=== PATIENT | female | born 1990 | race Caucasian/White ===

== ENCOUNTER 2016-11-28 21:41 | Emergency (ER) | payer OTHER, BC ==
[~2016-11-28 21:41] MED LIST: DAYSEE1 TAB PO; DEXILANT60 M1 PO; EC NAPROSYN500 MG PO; MULTAQ400 MG PO; NASONEX0.05 MG/Ac NS; PROA; TES100 PO; WEL100 PO
[2016-11-28 23:45] LABS: UA SPECIFIC GRAVITY 1.025 (1.005-1.035); microscopic required? YES; urine erythrocyte 2+ (NEGATIVE)
[2016-11-28 23:46] LABS: BASOPHIL % 0.5 % (0-2); PLATELET COUNT 338 x10^3mcL (130-400); RED CELL DISTRIBUTION WIDTH 13.6 % (11.5-14.5)
[2016-11-28 23:58] LABS: CALCIUM 9.2 mg/dL (8.5-10.1); CARBON DIOXIDE 24.5 mmol/L (21-32); CHLORIDE SERUM 102 mmol/L (98-107); GFR1 > 60 mL/min; GLUCOSE SERUM 104 mg/dL (74-106); POTASSIUM SERUM 4.1 mmol/L (3.5-5.1); SODIUM SERUM 139 mmol/L (136-145)
[2016-11-29 00:02] LABS: ALBUMIN 3.9 g/dL (3.4-5.0); ALKALINE PHOSPHATASE 101 U/L (46-116); ALT/SGPT 35 U/L (14-59); AMYLASE 58 U/L (25-115); AST/SGOT 14 U/L (15-37); BILIRUBIN TOTAL 0.3 mg/dL (0.20-1.00); LIPASE 96 IU/L (73-393)
[2016-11-29 04:30] VITALS: BP 113/68
== END 2016-11-29 04:30 | disposition home or self-care (01) ==
LOC: ED 21:41
PROVIDERS: Emergency Medicine
DX: R10.9 Unspecified abdominal pain (principal); P07.30 Preterm newborn, unspecified weeks of gestation; J45.909 Unspecified asthma, uncomplicated; R11.10 Vomiting, unspecified; H54.41 Blindness, right eye, normal vision left eye; F99 Mental disorder, not otherwise specified; Z88.5 Allergy status to narcotic agent
CPT/HCPCS: J1170; J3010; Q0162

== ENCOUNTER 2017-05-17 21:43 | Inpatient (IN) | payer OTHER, BC ==
[~2017-05-17] VITALS: Ht 157.5 cm; Wt 98.0 kg
[~2017-05-17 21:43] MED LIST changes: -NASONEX0.05 MG/Ac NS
--- NOTE | 2017-05-17 22:01 | NUR ---
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 PER MOTHER, PT WAS CONFUSED ASKING "WHAT ARE THESE? WHAT DO YOU DO WITH THEM?", REFERRING TO HER SOCKS. PT IS UNABLE TO ANSWER ANY QUESTIONS. WHEN ASKED HER NAME OR WHERE SHE IS PT STATES, "I DON'T KNOW". PT IS ABLE TO FOLLOW BASIC COMMANDS. NO FACIAL DROOP IS NOTED, SPEACH IS CLEAR. PER MOTHER, PT HAD SIMILAR INCIDENT X1 YEAR AGO AND SINCE THEN HAS SOME LEFT SIDED WEAKNESS, MEMORY LOSS AND DIFFICULTY CONCENTRATING. THIS HAS SINCE CAUSED HER TO DROP OUT OF SCHOOL. PER MOTHER, PT HAS SINCE THEN BEEN DIAGNOSED WITH A SZ DISORDER AND RECENTLY PICKED UP NEW MEDICATIONS THIS THURSDAY, WHICH MOTHER STATES SHE IS NOT SURE WHETHER PT HAS STARTED THE MEDICATION OR NOT. RESP E/U. PLACED ON FULL CM. NO ACUTE DISTRESS NOTED. MOTHER AT BEDSIDE. CALL LIGHT WITHIN REACH.
--- NOTE | 2017-05-17 22:30 | NUR ---
PORTABLE XRAY AT BEDSIDE.
[2017-05-17 22:44] LABS: BASOPHIL % 1.1 % (0-2); PLATELET COUNT 266 x10^3mcL (130-400); RED CELL DISTRIBUTION WIDTH 13.8 % (11.5-14.5)
[2017-05-17 23:05] LABS: CALCIUM 8.9 mg/dL (8.5-10.1); CHLORIDE SERUM 103 mmol/L (98-107); CREATININE SERUM 0.9 mg/dL (0.6-1.0); GFR1 > 60 mL/min; GLUCOSE SERUM 102 mg/dL (74-106); POTASSIUM SERUM 4.5 mmol/L (3.5-5.1); SODIUM SERUM 139 mmol/L (136-145)
[2017-05-17 23:10] LABS: ALBUMIN 3.5 g/dL (3.4-5.0); ALKALINE PHOSPHATASE 119 U/L (46-116); ALT/SGPT 39 U/L (14-59); AST/SGOT 23 U/L (15-37); BILIRUBIN TOTAL 0.1 mg/dL (0.20-1.00); CHOLESTEROL 188 mg/dL (<200); TOTAL PROTEIN, SERUM 7.4 g/dL (6.4-8.2)
[2017-05-18] MEDS ORDERED: FLOVENT DI100 MCG/A1 (00:30)
[2017-05-18] MEDS ORDERED: XOPENEX HF0.045 MG/1 (00:30)
[2017-05-18] MEDS ORDERED: [UNRECOGNIZED DRUG - OTHER] (00:30)
[2017-05-18] MEDS ORDERED: FLOVENT HF0.044 MG/1 (00:31)
[2017-05-18] MEDS ORDERED: CLARITIN10 MG (00:32)
[2017-05-18] MEDS ORDERED: VITAMIN-D1000 IU (00:32)
[2017-05-18] MEDS ORDERED: BACLOFEN20 MG PO (00:33)
[2017-05-18] MEDS ORDERED: DEXILANT60 M1 PO (00:33)
[2017-05-18] MEDS ORDERED: CYMBALTA60 M1 PO (00:33)
[2017-05-18] MEDS ORDERED: INDOMETHACIN25 MG PO (00:34)
[2017-05-18] MEDS ORDERED: NORCO1 TA2 PO (00:34)
[2017-05-18] MEDS ORDERED: NADOLOL20 MG PO (00:35)
[2017-05-18] MEDS ORDERED: CLONAZEPAM0.5 MG PO (00:36)
[2017-05-18] MEDS ORDERED: FLECAINIDE ACE100 MG PO (00:37)
[2017-05-18] MEDS ORDERED: LACOO OU (00:37)
[2017-05-18] MEDS ORDERED: DAYSEE1 TAB PO (00:38)
[2017-05-18] MEDS ORDERED: LYRICA150 M1 PO (00:38)
--- NOTE | 2017-05-18 02:10 | NUR ---
PT LAYING IN BED, IN POSITION OF COMFORT. RESP E/U. NO ACUTE DISTRESS NOTED. PT DENIES ANY PAIN OR DISCOMFORT. FATHER AT BEDSIDE. CALL LIGHT WITHIN REACH.
--- NOTE | 2017-05-18 03:02 | NUR ---
REPORT GIVEN TO BRANDEN ALDANA.
--- NOTE | 2017-05-18 03:30 | NUR ---
REC'D PT FROM ED VIA [facility]V ACCOMPANIED BY NURSE AND PARENTS. SZ PREC IN PLACE. PT AAOX1. ORIENTED TO SELF ONLY. REORIENTED TO AGE, , PLACE, TIME, AND SITUATION. PT UNABLE TO RECOGNIZE PARENTS. PROSTHESIS TO R EYE. L EYE PERRLA. FOLLOWS COMMANDS, SPEECH CLEAR, SLOW TO RESPOND. ON TELE 39, SR. DENIES CP, DIZZINESS, OR PALPITATIONS. NO SIGNS OF DISTRESS NOTED. BREATHING EVEN/UNLABORED ON RA. NO EDEMA NOTED. DENIES NUMBING OR TINGLING. DENIES ABD PAIN, TENDERNESS, OR N/V. BOWEL SOUNDS ACTIVE. HEALED SCAR ACROSS UPPER MARLEY QUADRANTS. LAST BM 05/17, "NORMAL." VOIDING FREELY WITHOUT DYSURIA. AMBULATORY. SKIN INTACT. DENIES PAIN OR DISCOMFORT AT THIS TIME. IV TO RAC. ORIENTED TO DEVICES AND SURROUNDINGS. CALL LIGHT WITHIN REACH, BED AT LOWEST POSITION. WILL CONTINUE TO MONITOR.
--- NOTE | 2017-05-18 03:50 | NUR ---
PT MOVED TO 228B
[2017-05-18 04:01] VITALS: BP 122/56
[2017-05-18 04:11] LABS: CHOLESTEROL/HDL RATIO 4.4; MAGNESIUM 2.2 mg/dL (1.8-2.4); PHOSPHOROUS 3.7 mg/dL (2.5-4.9)
[2017-05-18 04:29] VITALS: BP 122/56
[2017-05-18 04:32] LABS: microscopic required? YES; urine erythrocyte 2+ (NEGATIVE)
[2017-05-18 04:39] LABS: AMPHETAMINE QUAL UR NONE DETECTED (NEG <=1000)
[2017-05-18 04:45] LABS: T3 TOTAL 1.06 ng/mL
[2017-05-18 05:05] LABS: FREE T4 0.85 ng/dL (0.76-1.46); FREE THYROXINE INDEX 2.5 ug/dL (1.4-4.5); T4(THYROXINE) 8.2 ug/dL (4.7-13.3)
--- NOTE | 2017-05-18 05:40 | NUR ---
PT RESTING IN BED WITH EYES CLOSED. NO SIGNS OF DISTRESS NOTED. BREATHING EVEN/UNLABORED ON RA. REORIENTED PT TO SELF, TIME, AND PLACE. DID NOT GIVE FLU VACCINE THIS MORNING; UNABLE TO SCAN MED. CALL LIGHT WITHIN REACH, BED AT LOWEST POSITION. WILL ENDORSE TO DAY NURSE.
--- NOTE | 2017-05-18 06:53 | NUR ---
ABLE TO SCAN FLU VACCINE. GIVEN PER ORDER.
--- NOTE | 2017-05-18 08:11 | NUR ---
ALERT AND ORIENTED TO PERSON, PLACE, BIRTHDATE AND PRESIDENT, BUT VERY DELAYED RESPONSES. UNABLE TO SAY WHAT SHE WOULD FIND IN A LIBRARY. NO SOB NOTED, ROOM AIR. REPORTS BM LAST NIGHT, REFUSED COLACE. TOOK AM MEDS WITHOUT DIFFICULTY. ASSISTED WITH BREAKFAST SET UP. SEIZURE PRECAUTIONS IN PLACE. TELE 39. IVF NS @ 100 TO RAC WNL. CALL LIGHT WITHIN REACH.
--- NOTE | 2017-05-18 09:40 | NUR ---
ATE BREAKFAST WELL, 100%. NO DISTRESS NOTED. FATHER BEDSIDE.
--- NOTE | 2017-05-18 10:31 | NUR ---
DR BENTLEY IN TO SEE PATIENT AND FATHER. ASSESSED MEMORY.
[2017-05-18 11:03] VITALS: BP 134/85
--- NOTE | 2017-05-18 11:48 | NUR ---
DAD ASKING FOR HOME MEDICATIONS. PATIENT REPORTS DIARRHEA AND REQUESTING IMODIUM.
--- NOTE | 2017-05-18 11:57 | NUR ---
REPAGED DR RICK.
--- NOTE | 2017-05-18 11:57 | NUR ---
SPOKE WITH DR RICK AND MADE HER AWARE PATIENT REQUESTING IMODIUM.
--- NOTE | 2017-05-18 13:27 | NUR ---
REPORTS 5 EPISODES OF DIARRHEA. MEDICATED WITH IMODIUM.
--- NOTE | 2017-05-18 14:14 | NUR ---
REQUESTING HEART MEDICATIONS. FEELS LIKE HR IS ELEVATED. ST 106 ON TELE MONITOR. PAGED DR RICK.
--- NOTE | 2017-05-18 14:15 | NUR ---
SPOKE WITH DR RICK AND MADE AWARE HR AND PATIENT REQUESTING MEDICATION.
--- NOTE | 2017-05-18 14:44 | NUR ---
WITNESSED SIGNATURE ON CONSENT FOR RELEASE OF MEDICAL RECORDS FROM [facility] (NOT [facility] ORDERED).
[2017-05-18 15:14] VITALS: BP 132/73
--- NOTE | 2017-05-18 15:20 | NUR ---
WITNESSED SIGNATURE ON CONSENT FOR MEDICAL RECORDS AT [facility]
--- NOTE | 2017-05-18 16:11 | NUR ---
DR OBRIEN IN TO SEE PATIENT.
--- NOTE | 2017-05-18 16:55 | NUR ---
DR OBRIEN TALKING WITH PARENTS.
--- NOTE | 2017-05-18 17:05 | NUR ---
REPORTS NO DIARRHEA SINCE IMODIUM GIVEN. FREQUENTLY GOING TO BATHROOM, STEADY ON FEET.
[2017-05-18 17:41] VITALS: BP 147/90
--- NOTE | 2017-05-18 18:52 | NUR ---
MEDICATED WITH TYLENOL FOR HEADACHE.
--- NOTE | 2017-05-18 19:53 | NUR ---
PT SEEN, RESTING IN BED, ALERT AND ORIENTED X 2, SLOW TO ANSWER QUESTIONS, SZ PRECAUTION IN PLACE, DENIES HEADACHE OR DIZZINESS, RT EYE BLIND, BREATHING EVEN AND UNLABORED, NO SOB, LUNG SOUNDS CLEAR, ON ROOM AIR WITH NO RESP DISTRESS NOTED, ON TELE#39 NSR, DENIES CHEST PAIN, IVF INFUSING WELL, PULSES PALPABLE, NO EDEMA NOTED, AMBULATORY WITH STEADY GAIT, ABD ROUND WITH ACTIVE BS, NO BM AT THIS TIME, DENIES ABD PAIN, VOIDING FREELY, FAMILY AT BEDSIDE, NO DISTRESS NOTED, WILL KEEP TO MONITOR.
[2017-05-18 21:05] VITALS: BP 136/78
--- NOTE | 2017-05-19 02:27 | NUR ---
ROUNDS MADE, PT ASLEEP BUT EASILY AROUSABLE, DENIES ANY PAIN OR DISCOMFORT, SZ PRECAUTION IN PLACE, NO DISTRESS NOTED, WILL KEEP TO MONITOR.
--- NOTE | 2017-05-19 05:26 | NUR ---
PT ASLEEP BUT EASILY AROUSABLE, SLEPT ON AND OFF WHOLE NIGHT, IVF INFUSING WELL, GAVE ONE TIME NORCO FOR PAIN WITH GOOD RELIEF, SZ PRECAUTION IN PLACE, CONDITION NO CHANGE, NO DISTRESS NOTED, WILL KEEP TO MONITOR.
[2017-05-19 05:33] VITALS: BP 112/71
[2017-05-19 07:26] LABS: BASOPHIL % 0.2 % (0-2); PLATELET COUNT 237 x10^3mcL (130-400); RED CELL DISTRIBUTION WIDTH 14.1 % (11.5-14.5)
[2017-05-19 07:44] LABS: CALCIUM 8.5 mg/dL (8.5-10.1); CARBON DIOXIDE 26.7 mmol/L (21-32); CHLORIDE SERUM 105 mmol/L (98-107); CREATININE SERUM 0.9 mg/dL (0.6-1.0); GFR1 > 60 mL/min; GLUCOSE SERUM 108 mg/dL (74-106); MAGNESIUM 1.9 mg/dL (1.8-2.4); PHOSPHOROUS 3.9 mg/dL (2.5-4.9); POTASSIUM SERUM 3.9 mmol/L (3.5-5.1); SODIUM SERUM 140 mmol/L (136-145)
--- NOTE | 2017-05-19 07:45 | NUR ---
PATIENT IS RESTING IN BED. PATIENT IS CALM AND COOPERATIVE WITH CARE, ABLE TO FOLLOW COMMANDS AND ANSWER QUESTIONS. PATIENT ORIENTED TO NAME, , KNEW SHE WAS IN A HOSPITAL BUT NOT SURE OF NAME OF HOSPITAL AND KNEW WHY SHE WAS IN THE HOSPITAL. PATIENTS RIGHT EYE IS NON RESPONSIVE, PATIENT IS TELE #9, NSR. PULSES ARE PRESENT, NO EDEMA NOTED. LUNG SOUNDS ARE CLEAR. PATIENT STATES BM 05/18/17. BOWEL SOUNDS ARE PRESENT AND ACTIVE. PATIENT DENIES PAIN AT THIS TIME. SKIN IS CDI. PATIENT HAS IV TO RAC NS INFUSING AT 100 ML/HR, SITE IS CDI. CALL LIGHT IS WITHIN REACH, SIDE RAILS ARE UP AND BED IS LOCKED.
--- NOTE | 2017-05-19 07:59 | NUR ---
SITTING BEDSIDE EATING BREAKFAST. PROVIDED SUPPLIES FOR WASH UP.
--- NOTE | 2017-05-19 09:30 | NUR ---
DR BENTLEY IN TO SEE PATIENT AND FATHER. PLAN FOR DC HOME TODAY. PATIENT UP IN CHAIR, NO DISTRESS NOTED.
[2017-05-19 10:04] VITALS: BP 112/71
[2017-05-19] MEDS ORDERED: LIPI10 PO (10:29)
--- NOTE | 2017-05-19 12:38 | NUR ---
UP IN CHAIR FOR LUNCH.
[2017-05-19] MEDS ORDERED: NASONEX0.05 MG/Ac NS (14:26)
--- NOTE | 2017-05-19 14:58 | NUR ---
PATIENT GIVEN DISCHARGE INSTRUCTIONS WITH FAMILY. DISCHARGE ORDERS, MEDICATIONS, APPOINTMENTS, AND EDUCATION WAS REVIEWED. PATIENT, MOTHER AND FATHER ALL VERBALIZED UNDERSTANDING OF INSTRUCTIONS. PATIENT IN NO APPARENT DISTRESS, CHEST RISE EQUAL AND UNLABORED. IV DISCONTINUED, CATHETER INTACT, SITE ABSENT OF REDNESS, SWELLING AND DRAINAGE, COVERED WITH GAUZE AND TAPE. PATIENTS TELE REMOVED.
--- NOTE | 2017-05-19 15:15 | NUR ---
OFF FLOOR VIA WHEELCHAIR WITH RN AND FAMILY. ALL BELONGINGS WITH FAMILY.
== END 2017-05-19 15:18 | disposition home or self-care (01) | DRG 74 ==
LOC: ED 21:43 → DU 05-18 02:28
PROVIDERS: Emergency Medicine Emergency Medical Services; ADMIT Family Medicine Sports Medicine
DX: G90.9 Disorder of the autonomic nervous system, unspecified (principal); E44.1 Mild protein-calorie malnutrition; D68.69 Other thrombophilia; E11.51 Type 2 diabetes mellitus with diabetic peripheral angiopathy without gangrene; F32.9 Major depressive disorder, single episode, unspecified; G31.84 Mild cognitive impairment of uncertain or unknown etiology; G40.909 Epilepsy, unspecified, not intractable, without status epilepticus; M79.7 Fibromyalgia; E78.5 Hyperlipidemia, unspecified; R31.9 Hematuria, unspecified; E66.9 Obesity, unspecified; Z97.0 Presence of artificial eye; H54.8 Legal blindness, as defined in USA; Z68.39 Body mass index [BMI] 39.0-39.9, adult; H35.102 Retinopathy of prematurity, unspecified, left eye
CPT/HCPCS: 82962; 83880; 84439; 90658; G0480; J7030; J7042

== ENCOUNTER 2019-01-14 22:52 | Emergency (ER) | payer OTHER, BC ==
[~2019-01-14] VITALS: Ht 160 cm; Wt 90.7 kg
[~2019-01-14 22:52] MED LIST changes: +BACLOFEN20 MG PO; +CLARITIN10 MG; +CLONAZEPAM0.5 MG PO; +CYMBALTA60 M1 PO; +FLECAINIDE ACE100 MG PO; +FLOVENT DI100 MCG/A1; +FLOVENT HF0.044 MG/1; +INDOMETHACIN25 MG PO; +LACOO OU; +LIPI10 PO; +LYRICA150 M1 PO; +NADOLOL20 MG PO; +NASONEX0.05 MG/Ac NS; +NORCO1 TA2 PO; +VITAMIN-D1000 IU; +XOPENEX HF0.045 MG/1; +[UNRECOGNIZED DRUG - OTHER]
[2019-01-14 23:02] VITALS: Ht 160 cm; Wt 90.7 kg
[2019-01-15 01:20] VITALS: BP 146/90
== END 2019-01-15 01:20 | disposition home or self-care (01) ==
LOC: ED 22:52
DX: F12.929 Cannabis use, unspecified with intoxication, unspecified (principal); J45.909 Unspecified asthma, uncomplicated; F32.9 Major depressive disorder, single episode, unspecified; Z13.89 Encounter for screening for other disorder; Z90.49 Acquired absence of other specified parts of digestive tract; Z88.5 Allergy status to narcotic agent; Z91.018 Allergy to other foods